=== PATIENT | male | born 1950 | race Caucasian/White ===

== ENCOUNTER 2017-04-09 20:59 | Inpatient (IN) | payer MEDICARE ==
[2017-04-09 21:01] VITALS: BP 136/83; PULSE 81; RESP 20; O2SAT 97
[2017-04-09 21:05] VITALS: O2SAT 98
--- NOTE | 2017-04-09 21:12 | PD ---
HPI Chief Complaint: ? ATIVAN OVERDOSE Time Seen by Provider: 21:04 Travel History International Travel<30 days: No Contact w/Intl Traveler<30days: No Traveled to known affect area: No History of Present Illness HPI PATIENT STATED HE TOOK SOME ATIVAN (BOTTLE IS EMPTY BUT ITS FOR 30 TABS WRITTEN 1 YEAR AGO) TO TRY AND SLEEP. FAMILY STATES THAT HE USES BIPAP AT HOME AT NIGHT TIME....[place] [facility] GUTIERREZ ACTED PATIENT APPARENTLY HE TOOK TABS WITH INTENT TO HARM HIMSELF PFSH Social History Tobacco Use: No Allergies-Medications (Allergen,Severity, Reaction): Coded Allergies: No Known Allergies (Unverified , 04/09/17) Reported Meds & Prescriptions Reported Meds & Active Scripts Active Reported Magnesium & Vitamin D (Magnesium Oxide-Cholecalciferol) 500-3,000 Mg-Unit Cap Lorazepam 1 Mg Tab 1 Mg PO HS PRN Indomethacin 50 Mg Cap 50 Mg PO TID Take with food, milk, or antacids to decrease stomach adverse effects. Rosuvastatin (Rosuvastatin Calcium) 20 Mg Tab 20 Mg PO DAILY Escitalopram (Escitalopram Oxalate) 20 Mg Tab 20 Mg PO DAILY Cheratussin AC Liq (Guaifenesin-Codeine Liq) 100-10 Mg/5 Ml Syrp 5 Ml PO Q4H PRN Do not exceed 6 doses/24 hrs. Symbicort Inh (Budesonide/Formoterol Fumarate) 160-4.5 Mcg/Act Aero 2 Puff INH Q12HR Proair Hfa 8.5 GM Inh (Albuterol Sulfate) 90 Mcg/Act Aer 1-2 Puff INH Q6H PRN 108 mcg/actuation Spiriva Handihaler (Tiotropium Inh) 18 Mcg Cap 18 Mcg INH DAILY 1 capsule = 18 mcg Review of Systems ROS Limitations: Clinical Condition Except as stated in HPI: all other systems reviewed are Neg Physical Exam Narrative GENERAL: SKIN: Warm and dry. HEAD: Atraumatic. Normocephalic. EYES: Pupils equal and round. No scleral icterus. No injection or drainage. ENT: No nasal bleeding or discharge. Mucous membranes pink and moist. NECK: Trachea midline. No JVD. CARDIOVASCULAR: Regular rate and rhythm. RESPIRATORY: NOTED TONGUE BLOCKING AIRWAY, ONCE CLEARED PATIENT HAD STRONG VENT DRIVE, PLACED NASOPHARYNGEAL AIRWAY AND WILL PLACE ON BIPAP TO ASSIST VENTILATION, Clear to auscultation. Breath sounds equal bilaterally. GASTROINTESTINAL: OBESE, Abdomen soft, non-tender, nondistended. Hepatic and splenic margins not palpable. MUSCULOSKELETAL: Extremities without clubbing, cyanosis, or edema. No obvious deformities. NEUROLOGICAL: Awake and alert. No obvious cranial nerve deficits. Motor grossly within normal limits. Five out of 5 muscle strength in the arms and legs. Normal speech. PSYCHIATRIC: Appropriate mood and affect; insight and judgment normal. Data Data Last Documented VS Vital Signs Date Time Temp Pulse Resp B/P Pulse Ox O2 Delivery O2 Flow Rate FiO2 04/09/17 22:31 97 30 04/09/17 21:09 80 20 BiPAP 04/09/17 21:05 4.00 04/09/17 21:01 136/83 Orders Electrocardiogram (04/09/17 21:04) Complete Blood Count With Diff (04/09/17 21:04) Comprehensive Metabolic Panel (04/09/17 21:04) Prothrombin Time / Inr (Pt) (04/09/17 21:04) Act Partial Throm Time (Ptt) (04/09/17 21:04) Chest, Single Ap (04/09/17 21:04) Iv Access Insert/Monitor (04/09/17 21:04) Ecg Monitoring (04/09/17 21:04) Oximetry (04/09/17 21:04) Oxygen Administration (04/09/17 21:04) Urinary Catheter Insert/Apply (04/09/17 21:04) Drug Screen, Random Urine (04/09/17 21:04) Alcohol (Ethanol) (04/09/17 21:04) Salicylates (Aspirin) (04/09/17 21:04) Tylenol (Acetaminophen) (04/09/17 21:04) Resp Bipap / Cpap Non Invas Vt (04/09/17 21:04) Arterial Blood Gas (Abg) (04/09/17 ) Ceftriaxone Inj (Rocephin Inj) (04/09/17 22:30) Azithromycin Inj (Zithromax Inj) (04/09/17 22:30) Labs Laboratory Tests Test 04/09/17 04/09/17 04/09/17 04/09/17 21:05 21:08 21:18 21:30 White Blood Count 8.9 TH/MM3 Red Blood Count 5.18 MIL/MM3 Hemoglobin 15.3 GM/DL Hematocrit 46.0 % Mean Corpuscular Volume 88.8 FL Mean Corpuscular Hemoglobin 29.4 PG Mean Corpuscular Hemoglobin 33.1 % Concent Red Cell Distribution Width 13.9 % Platelet Count 228 TH/MM3 Mean Platelet Volume 8.6 FL Neutrophils (%) (Auto) 58.6 % Lymphocytes (%) (Auto) 29.0 % Monocytes (%) (Auto) 8.9 % Eosinophils (%) (Auto) 2.8 % Basophils (%) (Auto) 0.7 % Neutrophils # (Auto) 5.2 TH/MM3 Lymphocytes # (Auto) 2.6 TH/MM3 Monocytes # (Auto) 0.8 TH/MM3 Eosinophils # (Auto) 0.2 TH/MM3 Basophils # (Auto) 0.1 TH/MM3 CBC Comment DIFF FINAL Differential Comment Sodium Level 141 MEQ/L Potassium Level 3.9 MEQ/L Chloride Level 107 MEQ/L Carbon Dioxide Level 25.9 MEQ/L Anion Gap 8 MEQ/L Blood Urea Nitrogen 11 MG/DL Creatinine 0.75 MG/DL Estimat Glomerular Filtration 105 ML/MIN Rate Random Glucose 109 MG/DL Calcium Level 9.0 MG/DL Total Bilirubin 0.7 MG/DL Aspartate Amino Transf 24 U/L (AST/SGOT) Alanine Aminotransferase 28 U/L (ALT/SGPT) Alkaline Phosphatase 59 U/L Total Protein 6.8 GM/DL Albumin 3.4 GM/DL Salicylates Level LESS THAN 1.7 MG/DL Acetaminophen Level LESS THAN 2.0 MCG/ML Ethyl Alcohol Level LESS THAN 3 MG/DL Prothrombin Time 10.9 SEC Prothromb Time International 1.0 RATIO Ratio Activated Partial 25.8 SEC Thromboplast Time Blood Gas Puncture Site RT RADIAL Blood Gas Patient Temperature 98.6 Blood Gas HCO3 26 mmol/L Blood Gas Base Excess 2.2 mmol/L Blood Gas Oxygen Saturation 96 % Arterial Blood pH 7.41 Arterial Blood Partial 43 mmHg Pressure CO2 Arterial Blood Partial 108 mmHG Pressure O2 Arterial Blood Oxygen Content 21.4 Vol % Arterial Blood 1.4 % Carboxyhemoglobin Arterial Blood Methemoglobin 0.5 % Blood Gas Hemoglobin 15.7 G/DL Oxygen Delivery Device NPPV Blood Gas Ventilator Setting IP 10/PEEP 5 Blood Gas Inspired Oxygen 30 % Urine Opiates Screen NEG Urine Barbiturates Screen NEG Urine Amphetamines Screen NEG Urine Benzodiazepines Screen NEG Urine Cocaine Screen NEG Urine Cannabinoids Screen NEG MDM Medical Decision Making Medical Screen Exam Complete: Yes Emergency Medical Condition: Yes Medical Record Reviewed: Yes Interpretation(s) AB.40/42/108 ON 30% FIO2 BIPAP EKG: NSR 82, PVC, NO STEMI PATTERN, NONSPEC STT CHANGES Differential Diagnosis NO ACUTE E/O APNEA WILL PROVIDE VENT Narrative Course PATIENT'S HAS GOOD RESP DRIVE WITH BIPAP, ABG STABLE, FOUND TO HAVE PNA, WILL GIVE IV ABX AND ADMIT FOR OBS MEDICALLY (NO NEED FOR NASOPHARYNGEAL AIRWAY AT THIS POINT) Critical Care Narrative CRITICAL CARE NOTE: With evaluation of the patient, labs, EKG, receipt of radiologic studies, administration of medications, reevaluation the patient and discussion of the patient with the admitting physicians, the total critical care time was [60] minutes. Time to perform other separately billable procedures was not included in the critical care time. Diagnosis Primary Impression: LLL PNEUMONIA Additional Impression: ATIVAN INGESTION Admitting Information Admitting Physician Requests: Observation Mg Vargas MD Apr 09, 2017 21:12
[2017-04-09 21:33] LABS: BLOOD GAS BASE EXCESS 2.2 mmol/L (-2-2); BLOOD GAS CARBOXYHEMOGLOBIN 1.4 % (0-4); BLOOD GAS HCO3 26 mmol/L (22-26); BLOOD GAS METHEMOGLOBIN 0.5 % (0-2); BLOOD GAS O2 HGB SATURATION 96 % (90-100); BLOOD GAS OXYGEN CONTENT 21.4 Vol % (12.0-20.0); BLOOD GAS PCO2 43 mmHg (38-42); BLOOD GAS PO2 108 mmHG (61-120); BLOOD GAS TOTAL HGB 15.7 G/DL (12.0-16.0); CRITICAL VALUE NO; OXYGEN DEVICE NPPV; TEMP CORR TO 98.6
[2017-04-09 21:34] LABS: DRAW SITE RT RADIAL; FIO2 30 %; NUMBER OF ARTERIAL PUNCTURES 1; STAT YES; ULNAR PULSE PRESENT; VENT SETTINGS IP 10/PEEP 5
[2017-04-09 21:58] LABS: AUTOMATED NEUTROPHIL # 5.2 TH/MM3 (1.8-7.7); BASOPHIL # 0.1 TH/MM3 (0-0.2); BASOPHIL % 0.7 % (0.0-2.0); EOSINOPHIL # 0.2 TH/MM3 (0-0.4); EOSINOPHIL % 2.8 % (0.0-4.0); HEMO FLAGS DIFF FINAL; LYMPHOCYTE # 2.6 TH/MM3 (1.0-4.8); MEAN CELL VOLUME 88.8 FL (80.0-100.0); MEAN CORPUSCULAR HEMOGLOBIN 29.4 PG (27.0-34.0); MEAN CORPUSCULAR HGB CONC 33.1 % (32.0-36.0); MONO % 8.9 % (0.0-8.0); NEUT % 58.6 % (16.0-70.0); PLATELET COUNT 228 TH/MM3 (150-450); RED BLOOD COUNT 5.18 MIL/MM3 (4.50-5.90); RED CELL DISTRIBUTION WIDTH 13.9 % (11.6-17.2); WHITE BLOOD COUNT 8.9 TH/MM3 (4.0-11.0)
[2017-04-09 22:00] VITALS: BP 132/95; PULSE 78; RESP 20; O2SAT 99
[2017-04-09 22:00] LABS: AMPHETAMINE, URINE NEG (NEG); BARBITURATES, URINE NEG (NEG); COCAINE, URINE NEG (NEG)
[2017-04-09 22:06] LABS: APTT (PATIENT) 25.8 SEC (24.3-30.1); PROTHROMBIN TIME - PATIENT 10.9 SEC (9.8-11.6)
[2017-04-09 22:11] LABS: ANION GAP 8 MEQ/L (5-15); AST (GOT) 24 U/L (15-37); BICARBONATE 25.9 MEQ/L (21.0-32.0); BLOOD UREA NITROGEN 11 MG/DL (7-18); CHLORIDE 107 MEQ/L (98-107); GLOMERULAR FILTRATION RATE 105 ML/MIN (>89); POTASSIUM 3.9 MEQ/L (3.5-5.1); SODIUM (NA) 141 MEQ/L (136-145)
[2017-04-09 22:12] LABS: ALT (GPT) 28 U/L (12-78)
--- NOTE | 2017-04-09 22:12 | RADRPT ---
EXAM DATE/TIME: 04/09/2017 21:20 [facility] COMPARISON: No previous studies available for comparison. INDICATIONS : Short of breath. MEDICAL HISTORY : None. SURGICAL HISTORY : None. ENCOUNTER: Initial ACUITY: 1 day PAIN SCORE: Non-responsive. LOCATION: Bilateral chest FINDINGS: Frontal view of the chest demonstrates partially consolidative infiltrates in the left lower lung wit hout loss of delineation left hemidiaphragm. There is fullness in the hilar regions bilaterally with out evidence of peribronchial thickening. The heart is normal size. Mild elevation of the right hem idiaphragm. CONCLUSION: Partially consolidative infiltrate left lower lobe. Bilateral hilar fullness suggests possible adeno cat. Alfred Kamara MD on April 09, 2017 at 22:08 Board Certified Radiologist. This report was verified electronically.
[2017-04-09 22:14] LABS: ALKALINE PHOSPHATASE 59 U/L (45-117); TOTAL BILIRUBIN ADULT 0.7 MG/DL (0.2-1.0)
[2017-04-09 22:17] LABS: ACETAMINOPHEN LESS THAN 2.0 MCG/ML (10.0-30.0)
[2017-04-09] MEDS ORDERED: AZITHROMYCIN INJ 500 MG in SODIUM CHLOR 0.9% 250 ML INJ 250 ML IV ONE (22:30)
[2017-04-09] MEDS ORDERED: cefTRIAXone INJ 1,000 MG in SODIUM CHLORIDE 0.9% INJ 100 ML IV ONE (22:30)
[2017-04-09 22:31] VITALS: O2SAT 97
[2017-04-09] MEDS ORDERED: ALBUAER3 INH ×2 (22:34)
[2017-04-09] MEDS ORDERED: INDO50CA PO ×2 (22:34)
[2017-04-09] MEDS ORDERED: SPIRCAP INH ×2 (22:34)
[2017-04-09] MEDS ORDERED: CHERSYP2 PO ×2 (22:34)
[2017-04-09] MEDS ORDERED: ESCI20TA PO ×2 (22:34)
[2017-04-09] MEDS ORDERED: LORA1TAB12 PO ×2 (22:34)
[2017-04-09] MEDS ORDERED: MAGNCAP2 ×2 (22:34)
[2017-04-09] MEDS ORDERED: ROSU1TAB8 PO ×2 (22:34)
[2017-04-09] MEDS ORDERED: SYMB160A INH ×2 (22:34)
[2017-04-09 23:00] VITALS: BP 162/87; PULSE 80; RESP 20; O2SAT 97
[2017-04-10] VITALS (17 sets, daily range): BP systolic 124–173; BP diastolic 58–92; PULSE 69–86; RESP 12–20; TEMP 96.3–98.8; O2SAT 91–97
[2017-04-10] MEDS ORDERED: NALOXONE HCL 0.4 MG/ML AMP IV PRN (00:15)
[2017-04-10] MEDS ORDERED: RESP: ALBUTEROL 2.5 MG/IPRATROPIUM 0.5 MG NEB (PRN) NEB (00:15)
[2017-04-10] MEDS ORDERED: SODIUM CHLORIDE 0.9% FLUSH 10 ML FLUSH IV FLUSH PRN (00:15)
--- NOTE | 2017-04-10 01:22 | HHI.HP ---
[facility] Service [facility] Primary Care Physician Ti Cabral MD Admission Diagnosis LLL PNA, SOMNOLENCE DUE TO ATIVAN INGESTION Diagnoses: Travel History International Travel<30 Days: No Contact w/Intl Traveler <30 Da: No Traveled to Known Affected Are: No History of Present Illness History from patient, ER physician communication, and review of medical records. Patient was brought in by ambulance because he was found lethargic by family members. He was under [employer] act. The [employer] act papers reviewed. Reported that patient was suspected to have Ativan ingestion. Apparently patient has a bottle of Ativan which was filled a while ago though. However patient's who was out of town was contacted who stated patient also take multiple antidepressants. At the same time In the emergency room, patient was quite lethargic and he was placed on BiPAP. At the time of my arrival, patient is lethargic but easily arousable to verbal stimuli. He denies being on BiPAP or C Pap at home. He states he does not remember what happened. He is not able to tell me whether he ingested medications intentionally or not. Does report of some nausea. States he did have a little bit of vomiting as well. Complaints of abdominal pain everywhere. Complaints of urinary burning and pain on urination. Complains of generalized pain in his legs. Traveled here from [place] about 2 days ago by plane. Denies any focal weakness. Denies any diarrhea. Denies any chest pain/palpitations/shortness of breath. Patient is unsure whether he had falls or syncope. Review of Systems Except as stated in HPI: all other systems reviewed are Neg Past Family Social History Past Medical History afib- states not on blood thinners obesity copd on home oxygen not sure of sleep apnea bph Past Surgical History appendectomy Allergies: Coded Allergies: No Known Allergies (Unverified , 04/09/17) Family History none per pt Social History used to smoke, quit now denies etoh abuse or drug abuse Physical Exam Vital Signs Vital Signs Date Time Temp Pulse Resp B/P Pulse Ox O2 Delivery O2 Flow Rate FiO2 04/10/17 00:00 98.8 81 20 143/92 97 CPAP 35 7/6/17 22:31 97 30 04/09/17 21:09 80 20 98 BiPAP 04/09/17 21:05 98 30 04/09/17 21:05 98 4.00 04/09/17 21:01 81 20 136/83 97 Physical Exam GENERAL: This is a well-nourished, well-developed patient, in no apparent distress. obese, awakens to verbal stimuli but is lethargic SKIN: No rashes, ecchymoses or lesions. Cool and dry. HEAD: Atraumatic. Normocephalic. No temporal or scalp tenderness. EYES: No scleral icterus. No injection or drainage. ENT: Nose without bleeding, purulent drainage or septal hematoma. Airway patent. NECK: Trachea midline. No JVD CARDIOVASCULAR: Regular rate and rhythm without murmurs, gallops, or rubs. RESPIRATORY: decreased air entry bilaterally, limited exam due to bipap sounds GASTROINTESTINAL: Abdomen soft, non-tender, nondistended. . No guarding. MUSCULOSKELETAL: Extremities without clubbing, cyanosis, or edema. No calf tenderness. NEUROLOGICAL: lethargic but arousable to verbal stimuli though falls right back asleep, moving all 4 limbs, normal speech Laboratory Laboratory Tests Test 04/09/17 04/09/17 04/09/17 04/09/17 21:05 21:08 21:18 21:30 White Blood Count 8.9 Red Blood Count 5.18 Hemoglobin 15.3 Hematocrit 46.0 Mean Corpuscular Volume 88.8 Mean Corpuscular Hemoglobin 29.4 Mean Corpuscular Hemoglobin 33.1 Concent Red Cell Distribution Width 13.9 Platelet Count 228 Mean Platelet Volume 8.6 Neutrophils (%) (Auto) 58.6 Lymphocytes (%) (Auto) 29.0 Monocytes (%) (Auto) 8.9 Eosinophils (%) (Auto) 2.8 Basophils (%) (Auto) 0.7 Neutrophils # (Auto) 5.2 Lymphocytes # (Auto) 2.6 Monocytes # (Auto) 0.8 Eosinophils # (Auto) 0.2 Basophils # (Auto) 0.1 CBC Comment DIFF FINAL Differential Comment Sodium Level 141 Potassium Level 3.9 Chloride Level 107 Carbon Dioxide Level 25.9 Anion Gap 8 Blood Urea Nitrogen 11 Creatinine 0.75 Estimat Glomerular Filtration 105 Rate Random Glucose 109 Calcium Level 9.0 Total Bilirubin 0.7 Aspartate Amino Transf 24 (AST/SGOT) Alanine Aminotransferase 28 (ALT/SGPT) Alkaline Phosphatase 59 Total Protein 6.8 Albumin 3.4 Salicylates Level LESS THAN 1.7 Acetaminophen Level LESS THAN 2.0 Ethyl Alcohol Level LESS THAN 3 Prothrombin Time 10.9 Prothromb Time International 1.0 Ratio Activated Partial 25.8 Thromboplast Time Blood Gas Puncture Site RT RADIAL Blood Gas Patient Temperature 98.6 Blood Gas HCO3 26 Blood Gas Base Excess 2.2 Blood Gas Oxygen Saturation 96 Arterial Blood pH 7.41 Arterial Blood Partial 43 Pressure CO2 Arterial Blood Partial 108 Pressure O2 Arterial Blood Oxygen Content 21.4 Arterial Blood 1.4 Carboxyhemoglobin Arterial Blood Methemoglobin 0.5 Blood Gas Hemoglobin 15.7 Oxygen Delivery Device NPPV Blood Gas Ventilator Setting IP 10/PEEP 5 Blood Gas Inspired Oxygen 30 Urine Opiates Screen NEG Urine Barbiturates Screen NEG Urine Amphetamines Screen NEG Urine Benzodiazepines Screen NEG Urine Cocaine Screen NEG Urine Cannabinoids Screen NEG Result Diagram: 04/09/17210404/09/172104 Imaging Last [address] 04/10/17 0000 Signed Impressions: Service Date/Time: Monday, April 10, 2017 02:53 - CONCLUSION: 1. 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 2. Otherwise, no acute intracranial process to explain current clinical symptoms. Filemon Christopher MD Chest X-Ray 04/09/172103 Signed Impressions: Service Date/Time: April 21:20 - CONCLUSION: Partially consolidative infiltrate left lower lobe. Bilateral hilar fullness suggests possible adenopathy. Alfred Kamara MD Assessment and Plan Assessment and Plan Impression: lethargylikely due to drug ingestion. His tox screen is negative including negative benzos. Likely he ingested antidepressants. [employer] act status r/o intracranial etiology CO2 retention. ABG did not reveal any significant CO2 narcosis. afib- states not on blood thinners obesity copd on home oxygen not sure of sleep apnea bph Plan: head ct eeg neurochecks no significant co2 retention ct bipap watch for co2 retention Nebs when necessary. Hold antidepressants. Hold benzos. Psychiatry consult. Sitter at the bedside. DVT prophylaxiswith Lovenox. Discussed Condition With Patient, ER physician, patient's nurse Physician Certification 2 Midnight Certification Type: Admission for Inpatient Services Order for Inpatient Services The services are ordered in accordance with Medicare regulations or non- Medicare payer requirements, as applicable. In the case of services not specified as inpatient-only, they are appropriately provided as inpatient services in accordance with the 2-midnight benchmark. Estimated LOS (days): 2 days is the estimated time the patient will need to remain in the hospital, assuming treatment plan goals are met and no additional complications. Post-Hospital Plan: Home Kayla Garrett MD Apr 10, 2017 01:22
[2017-04-10] MEDS: RESP: ALBUTEROL 2.5 MG/IPRATROPIUM 0.5 MG NEB (SCH) NEB ×4 (03:33→21:56)
--- NOTE | 2017-04-10 03:38 | RADRPT ---
EXAM DATE/TIME: 04/10/2017 02:53 [facility] COMPARISON: No previous studies available for comparison. INDICATIONS : Altered mental status. RADIATION DOSE: 69.15 CTDIvol (mGy) MEDICAL HISTORY : Non-responsive. SURGICAL HISTORY : Non-responsive. ENCOUNTER: Initial ACUITY: 1 day PAIN SCALE: Non-responsive LOCATION: cranial TECHNIQUE: Multiple contiguous axial images were obtained of the head. Using automated exposure control and adj ustment of the mA and/or kV according to patient size, radiation dose was kept as low as reasonably a chievable to obtain optimal diagnostic quality images. DICOM format image data is available electro nically for review and comparison. FINDINGS: CEREBRUM: The ventricles are normal for age. No evidence of midline shift, mass lesion, hemorrhage or acute in farction. 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 No extra-axial fluid collections are seen. POSTERIOR FOSSA: The cerebellum and brainstem are intact. The 4th ventricle is midline. The cerebellopontine angle i s unremarkable. EXTRACRANIAL: The visualized portion of the orbits is intact. SKULL: The calvaria is intact. No evidence of skull fracture. CONCLUSION: 1. 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 2. Otherwise, no acute intracranial process to explain current clinical symptoms. Filemon Christopher MD on April 10, 2017 at 3:34 Board Certified Radiologist. This report was verified electronically.
[2017-04-10] MEDS: BUDESONIDE-FORMOTEROL 160/4.5 MCG INHALER INH SCH ×2 (09:00→20:48)
[2017-04-10] MEDS: TIOTROPIUM BROMIDE 18 MCG INH INH SCH (09:00)
[2017-04-10] MEDS: LEVOFLOXACIN 750 MG PREMIX INJ 150 ML IV SCH (09:24)
[2017-04-10] MEDS: ATORVASTATIN 40 MG TAB PO SCH (09:24)
[2017-04-10] MEDS: ENOXAPARIN SODIUM 40 MG/0.4 ML SYRINGE SQ SCH (09:25)
[2017-04-10] MEDS: SODIUM CHLORIDE 0.9% FLUSH 10 ML FLUSH IV FLUSH SCH ×2 (09:26→21:00)
--- NOTE | 2017-04-10 10:10 | PD.PSY.CON ---
Provisional Diagnosis Admission Date Apr 09, 2017 at 23:32 [place]. Major depression, severe, without psychotic features. History of Present Illness Service Psychiatry Consult Requested By [facility] Primary Care Physician Ti Cabral MD HPI This is a 67-year-old male who apparently overdosed on approximately 31 mg tablets of Ativan. The patient is currently in respiratory insufficiency and is receiving oxygen by mask. He is lethargic and short of breath, thereby making him a inadequate historian. He does admit to symptoms of depression and that this was a suicide attempt. He also states "I have a lot on my mind". He is willing and wanting to be admitted to the inpatient psychiatry unit. He is obese with a history of COPD and possible apnea. Apparently his was out of town when this happened. The Ativan he took was approximately one year old. He denies any use of alcohol or illicit drugs. He does report anxiety, depressed mood, suicidality, diminished energy, diminished self-esteem. And feelings of hopelessness. His symptoms of depression have been going on for months. Review of Systems ROS Limitations: Poor Historian Past Family Social History Coded Allergies: No Known Allergies (Unverified , 04/09/17) Reported Medications Magnesium Oxide-Cholecalciferol (Magnesium & Vitamin D)500-3,000 Mg-Unit Cap 04/09/17 Lorazepam 1 Mg Tab1 Mg PO HS PRN (ANXIETY AND/OR INSOMNIA) Ref 0 04/09/17 Indomethacin 50 Mg Cap50 Mg PO TID Ref 0 Take with food, milk, or antacids to decrease stomach adverse effects. 04/09/17 Rosuvastatin 20 Mg Tab20 Mg PO DAILY #30 TAB Ref 0 04/09/17 Escitalopram 20 Mg Tab20 Mg PO DAILY #30 TAB Ref 0 04/09/17 Guaifenesin-Codeine Liq (Cheratussin AC Liq)100-10 Mg/5 Ml Syrp5 Ml PO Q4H PRN ( COUGH AND COLD SYMPTOMS) Ref 0 Do not exceed 6 doses/24 hrs. 04/09/17 Budesonide-Formoterol Inh (Symbicort Inh)160-4.5 Mcg/Act Aero2 Puff INH Q12HR # 1 INHALER Ref 0 04/09/17 Albuterol 8.5 GM Inh (Proair Hfa 8.5 GM Inh)90 Mcg/Act Aer1-2 Puff INH Q6H PRN ( SHORTNESS OF BREATH) #1 INHALER Ref 0 108 mcg/actuation 04/09/17 Tiotropium Inh (Spiriva Handihaler)18 Mcg Cap18 Mcg INH DAILY #30 CAP Ref 0 1 capsule = 18 mcg 04/09/17 Current Medications Medications (Trade) Dose Ordered Sig/[place] Route Start Time Stop Time Status Last Admin (NS Flush) 2 ml UNSCH PRN IV FLUSH 04/10/17 00:15 (NS Flush) 2 ml BID IV FLUSH 04/10/17 09:00 04/10/17 09:26 Naloxone HCl 0.4 mg 0.4 mg UNSCH PRN IV 04/10/17 00:15 (Levaquin 750 Mg Premix Inj) 150 ml @ 100 mls/hr Q24H IV 04/10/17 08:00 04/10/17 09:24 (Symbicort 160-4.5 Inh) 2 puff Q12HR INH 04/10/17 09:00 (Spiriva Inh) 18 mcg DAILY INH 04/10/17 09:00 (Lipitor) 40 mg DAILY PO 04/10/17 09:00 04/10/17 09:24 (Lovenox Inj) 40 mg Q24H SQ 04/10/17 09:00 04/10/17 09:25 Family History Denied Social History Patient gave a smoking years ago. He does not drink alcohol or use illicit drugs. He does have financial stressors and family stressors. Patient's Strengths (min. 2) Resilient and has access to healthcare. Physical Exam Vital Signs Vital Signs Date Time Temp Pulse Resp B/P Pulse Ox O2 Delivery O2 Flow Rate FiO2 04/10/17 09:42 94 Nasal Cannula 2.00 04/10/17 07:00 97.9 71 17 173/77 04/10/17 01:30 30 Mental Status Examination Speech: Unremarkable, Other Orientation: x3 Memory: Unremarkable Thought Process: Organized, Goal Directed Thought Content: Unremarkable Hallucination Type: None Attention and Concentration: Good Suicidal Ideation: Yes Previous Suicide Attempts: Yes Homicidal Ideation: No Previous Homicide Attempts: No Insight: Fair Judgment: Impulsive Affect: Anxious, Sad Mood: Sad, Anxious Motor Activity: Normal gait Assessment & Plan Problem List: (1) Severe major depression, single episode, without psychotic features ICD Code: F32.2 Assessment & Plan Estimated LOS: days due to patient's current state of depression and anxiety, coupled with his recent overdose and continued suicidality, he is at high risk for self-harm. This physician is recommending the patient be transferred to psychiatry when he is medically stable. As of this physician is leaving [facility] for several weeks, it is recommended the psychiatrist on-call be contacted when patient is medically stable for discharge. Art Colbert MD Apr 10, 2017 10:10
--- NOTE | 2017-04-10 12:34 | HHI.PR ---
Subjective Remarks Follow-up toxic encephalopathy 04/10/17-patient seen and examined; although [place] lethargic however patient is arousable and answers some questions. Seems to be oriented to place ,person. Objective Vitals Vital Signs Date Time Temp Pulse Resp B/P Pulse Ox O2 Delivery O2 Flow Rate FiO2 04/10/17 12:00 78 04/10/17 11:00 98.6 83 12 138/84 95 04/10/17 11:00 80 04/10/17 10:00 75 04/10/17 09:42 94 Nasal Cannula 2.00 04/10/17 09:00 86 04/10/17 07:00 97.9 71 17 173/77 91 04/10/17 04:00 85 04/10/17 03:26 97.4 79 133/84 95 04/10/17 03:00 74 04/10/17 01:58 94 Nasal Cannula 2.00 04/10/17 01:50 95 Nasal Cannula 04/10/17 01:30 82 16 124/71 97 BiPAP 30 04/10/17 00:00 98.8 81 20 143/92 97 BiPAP 35 04/09/17 23:00 80 20 162/87 97 BiPAP 35 04/09/17 22:31 97 30 04/09/17 22:00 78 20 132/95 99 BiPAP 35 04/09/17 21:09 80 20 98 BiPAP 04/09/17 21:05 98 30 04/09/17 21:05 98 4.00 04/09/17 21:01 81 20 136/83 97 I/O 04/09/17 04/09/17 04/09/17 04/10/17 04/10/17 04/10/17 07:00 15:00 23:00 07:00 15:00 23:00 Output Total 75 ml Balance -75 ml Output Urine Total 75 ml Result Diagram: 04/09/17210404/09/172104 Imaging Last Impressions Head CT 04/10/17 0000 Signed Impressions: Service Date/Time: Monday, April 10, 2017 02:53 - CONCLUSION: 1. 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 2. Otherwise, no acute intracranial process to explain current clinical symptoms. Filemon Christopher MD Chest X-Ray 04/09/172103 Signed Impressions: Service Date/Time: April 21:20 - CONCLUSION: Partially consolidative infiltrate left lower lobe. Bilateral hilar fullness suggests possible adenopathy. Alfred Kamara MD Objective Remarks GENERAL: Lethargic, otherwise not in acute distress SKIN: Warm and dry. HEAD: Normocephalic. EYES: No scleral icterus. No injection or drainage. NECK: Supple, trachea midline. No JVD or lymphadenopathy. CARDIOVASCULAR: Regular rate and rhythm without murmurs, gallops, or rubs. RESPIRATORY: Breath sounds equal bilaterally. No accessory muscle use. GASTROINTESTINAL: Abdomen soft, non-tender, nondistended. MUSCULOSKELETAL: No cyanosis, or edema. BACK: Nontender without obvious deformity. No CVA tenderness. A/P Problem List: (1) Toxic encephalopathy ICD Code: G92 Status: Acute Assessment and Plan 67-year-old man with Toxic encephalopathy Likely due to drug ingestion. His tox screen is negative including negative benzos. Resolving Acute mood disorder Appreciate input from psychiatry Continue with [employer] act and Sitter by the bedside CO2 narcosis CO2 retention. BiPAP when necessary Community-acquired bacterial pneumonia Continue with IV Levaquin Other chronic medical conditions Continue outpatient medications DVT prophylaxis Bilateral SCDs Rohan Contreras MD Apr 10, 2017 12:34 Plan: head ct eeg neurochecks no significant co2 retention ct bipap watch for co2 retention Nebs when necessary. Hold antidepressants. Hold benzos. Psychiatry consult. Sitter at the bedside. Rohan Contreras MD Apr 10, 2017 12:34
--- NOTE | 2017-04-10 13:29 | EKG ---
Date Performed: 04/09/2017 Time Performed: 21:05:56 PTAGE: 67 years EKG: Sinus rhythm WITH FREQUENT SUPRAVENTRICULAR PREMATURE COMPLEXES ABNORMAL RHYTHM ECG NO PREVIOUS TRACING DOCTOR: Gui Carrizales Interpretating Date/Time 04/10/2017 13:23:40
--- NOTE | 2017-04-10 15:29 | MG ---
cc: [facility] No: [id number] Date: 04/10/17 Age: 67 Sex: M Race: DATE OF [address] Garrett ROOM [id number] With photic stimulation, has a nasal cannula. Awake, drowsy study. CT showed possible old lacune in the right internal capsule. A 67-year-old patient male, found lethargic, Grubbs Acted. MEDICATIONS 1. Rocephin. 2. Azithormycin. 3. Albuterol. DESCRIPTION OF RECORD The patient has an 8 Hz alpha wave, 20 microvolts. Fairly symmetrical background. EKG looks sinus initially and then there is some sinus arrhythmia, possible a-fib. This is ___ by the one lead but overall a symmetrical background. Some muscle artifact documented and observed. Eye movement. Photic stimulation does elicit a posterior driving response. IMPRESSION Overall normal-appearing EEG. No appreciable evidence of any epileptiform features in this one recording. Clinical correlation. Raiza Stewart MD DF/EO /3:08 PM /3:28 PM
[2017-04-10 16:43] LABS: BACTERIA, URINE OCC /hpf; BLOOD, URINE LARGE (NEG); GLUCOSE,URINE NEG (NEG); KETONE, URINE NEG (NEG); MUCUS URINE MANY /lpf (OCC); NITRITE,URINE NEG (NEG); PH, URINE 5.5 (5.0-8.5); SQUAMOUS EPITHELIAL CELL URINE 1 /hpf (0-5); URINE COLOR YELLOW (YELLW/STRAW)
[2017-04-10 16:44] LABS: COMMENT (UR) CATH-CULTURE IND; CULTURE IF INDICATED CATH CULTURE IND
[2017-04-11] VITALS (9 sets, daily range): BP systolic 122–146; BP diastolic 61–81; PULSE 72–91; RESP 18–20; TEMP 95.7–98; O2SAT 92–98
[2017-04-11] MEDS: RESP: ALBUTEROL 2.5 MG/IPRATROPIUM 0.5 MG NEB (SCH) NEB ×4 (04:23→21:37)
[2017-04-11 08:37] LABS: AUTOMATED NEUTROPHIL # 5.5 TH/MM3 (1.8-7.7); BASOPHIL % 0.5 % (0.0-2.0); EOSINOPHIL # 0.2 TH/MM3 (0-0.4); HEMATOCRIT 44.7 % (39.0-51.0); HEMO FLAGS DIFF FINAL; LYMPH % 21.6 % (9.0-44.0); LYMPHOCYTE # 1.8 TH/MM3 (1.0-4.8); MEAN CELL VOLUME 88.4 FL (80.0-100.0); MEAN CORPUSCULAR HEMOGLOBIN 29.4 PG (27.0-34.0); MEAN CORPUSCULAR HGB CONC 33.3 % (32.0-36.0); MONO % 9.2 % (0.0-8.0); NEUT % 66.7 % (16.0-70.0); PLATELET COUNT 219 TH/MM3 (150-450); RED BLOOD COUNT 5.05 MIL/MM3 (4.50-5.90); RED CELL DISTRIBUTION WIDTH 13.9 % (11.6-17.2); WHITE BLOOD COUNT 8.2 TH/MM3 (4.0-11.0)
[2017-04-11] MEDS: LEVOFLOXACIN 750 MG PREMIX INJ 150 ML IV SCH (08:40)
[2017-04-11] MEDS: TIOTROPIUM BROMIDE 18 MCG INH INH SCH (08:41)
[2017-04-11] MEDS: BUDESONIDE-FORMOTEROL 160/4.5 MCG INHALER INH SCH ×2 (08:41→20:02)
[2017-04-11] MEDS: ATORVASTATIN 40 MG TAB PO SCH (08:42)
[2017-04-11] MEDS: SODIUM CHLORIDE 0.9% FLUSH 10 ML FLUSH IV FLUSH SCH ×2 (08:42→20:15)
[2017-04-11] MEDS: ENOXAPARIN SODIUM 40 MG/0.4 ML SYRINGE SQ SCH (08:42)
[2017-04-11 09:21] LABS: BICARBONATE 27.7 MEQ/L (21.0-32.0); POTASSIUM 3.6 MEQ/L (3.5-5.1)
--- NOTE | 2017-04-11 10:50 | HHI.PR ---
Subjective Remarks Follow-up toxic encephalopathy/community acquired pneumonia and now UTI 04/10/17-patient seen and examined; although Soma lethargic however patient is arousable and answers some questions. Seems to be oriented to place ,person. 04/11/17-patient seen and examined; alert and oriented 3, patient states he has no recollection of what happened; patient denies any suicidal ideation or attempt Objective Vitals Vital Signs Date Time Temp Pulse Resp B/P Pulse Ox O2 Delivery O2 Flow Rate FiO2 04/11/17 08:16 92 Nasal Cannula 2.00 04/11/17 08:02 95.8 79 20 122/68 98 04/11/17 04:00 95.7 73 18 132/61 94 04/11/17 00:00 98.0 82 20 146/74 96 04/10/17 21:57 93 Nasal Cannula 2.00 04/10/17 20:00 97.0 85 20 158/78 92 04/10/17 16:27 95 Nasal Cannula 2.00 04/10/17 16:00 97.7 80 20 139/78 94 04/10/17 13:29 96.3 71 18 157/58 04/10/17 12:00 78 04/10/17 11:00 98.6 83 12 138/84 95 04/10/17 11:00 80 I/O 04/10/17 04/10/17 04/10/17 04/11/17 04/11/17 04/11/17 07:00 15:00 23:00 07:00 15:00 23:00 Intake Total 240 ml Output Total 75 ml 350 ml 350 ml Balance -75 ml -350 ml -110 ml Intake Oral 240 ml Output Urine Total 75 ml 350 ml 350 ml # Voids 4 Result Diagram: 04/11/17 0745 04/11/17 0714 Imaging Last Impressions Head CT 04/10/17 0000 Signed Impressions: Service Date/Time: Monday, April 10, 2017 02:53 - CONCLUSION: 1. 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 2. Otherwise, no acute intracranial process to explain current clinical symptoms. Filemon Christopher MD Chest X-Ray 04/09/172103 Signed Impressions: Service Date/Time: April 21:20 - CONCLUSION: Partially consolidative infiltrate left lower lobe. Bilateral hilar fullness suggests possible adenopathy. Alfred Kamara MD Objective Remarks GENERAL: NAD SKIN: Warm and dry. HEAD: Normocephalic. EYES: No scleral icterus. No injection or drainage. NECK: Supple, trachea midline. No JVD or lymphadenopathy. CARDIOVASCULAR: Regular rate and rhythm without murmurs, gallops, or rubs. RESPIRATORY: Breath sounds equal bilaterally. No accessory muscle use. GASTROINTESTINAL: Abdomen soft, non-tender, nondistended. MUSCULOSKELETAL: No cyanosis, or edema. BACK: Nontender without obvious deformity. No CVA tenderness. A/P Problem List: (1) Toxic encephalopathy ICD Code: G92 Status: Resolved (2) Community acquired bacterial pneumonia ICD Code: J15.9 Status: Acute (3) UTI (urinary tract infection) ICD Code: N39.0 Status: Acute Assessment and Plan 67-year-old man with Toxic encephalopathy-Resolved Likely due to drug ingestion. His tox screen is negative including negative benzos. Acute mood disorder Appreciate input from psychiatry Continue with Grubbs act and Sitter by the bedside CO2 narcosis CO2 retention-Resolved BiPAP when necessary Community-acquired bacterial pneumonia Continue with IV Levaquin Urinary tract infection Currently on IV Levaquin pending urine culture Other chronic medical conditions Continue outpatient medications DVT prophylaxis Bilateral SCDs Rohan Contreras MD Apr 11, 2017 10:50
[2017-04-12 00:47] VITALS: BP 113/55; PULSE 71; RESP 17; TEMP 97.6; O2SAT 97
[2017-04-12] MEDS: RESP: ALBUTEROL 2.5 MG/IPRATROPIUM 0.5 MG NEB (SCH) NEB ×2 (03:00→10:02)
[2017-04-12 04:37] VITALS: BP 135/64; PULSE 82; RESP 17; TEMP 98.2; O2SAT 95
[2017-04-12] MEDS: LEVOFLOXACIN 750 MG PREMIX INJ 150 ML IV SCH (07:42)
[2017-04-12 08:00] VITALS: BP 120/65; PULSE 79; RESP 20; O2SAT 92
[2017-04-12] MEDS: ENOXAPARIN SODIUM 40 MG/0.4 ML SYRINGE SQ SCH (09:00)
[2017-04-12] MEDS: TIOTROPIUM BROMIDE 18 MCG INH INH SCH (09:32)
[2017-04-12] MEDS: BUDESONIDE-FORMOTEROL 160/4.5 MCG INHALER INH SCH (09:33)
[2017-04-12] MEDS: ATORVASTATIN 40 MG TAB PO SCH (09:34)
[2017-04-12] MEDS: SODIUM CHLORIDE 0.9% FLUSH 10 ML FLUSH IV FLUSH SCH (09:34)
[2017-04-12 10:02] VITALS: O2SAT 95
--- NOTE | 2017-04-12 11:04 | HHI.PR ---
Subjective Remarks Follow-up toxic encephalopathy/community acquired pneumonia and UTI 04/10/17-patient seen and examined; although Soma lethargic however patient is arousable and answers some questions. Seems to be oriented to place ,person. 04/11/17-patient seen and examined; alert and oriented 3, patient states he has no recollection of what happened; patient denies any suicidal ideation or attempt 04/12/17-patient seen and examined;, stable, afebrile, no acute event overnight. Objective Vitals Vital Signs Date Time Temp Pulse Resp B/P Pulse Ox O2 Delivery O2 Flow Rate FiO2 04/12/17 10:02 95 21 04/12/17 08:00 79 20 120/65 92 04/12/17 04:37 98.2 82 17 135/64 95 04/12/17 00:47 97.6 71 17 113/55 97 04/11/17 21:27 88 04/11/17 20:00 95.7 81 20 144/73 92 04/11/17 16:34 96.0 72 20 128/81 92 04/11/17 12:38 96.1 91 20 124/68 I/O 04/11/17 04/11/17 04/11/17 04/12/17 04/12/17 04/12/17 07:00 15:00 23:00 07:00 15:00 23:00 Intake Total 240 ml 1060 ml 120 ml Output Total 350 ml Balance -110 ml 1060 ml 120 ml Intake Oral 240 ml 960 ml 120 ml IV Total 100 ml Output Urine Total 350 ml # Voids 4 4 1 Result Diagram: 04/11/17 0745 04/11/17 0714 Imaging Last Impressions Head CT 04/10/17 0000 Signed Impressions: Service Date/Time: Monday, April 10, 2017 02:53 - CONCLUSION: 1. 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 2. Otherwise, no acute intracranial process to explain current clinical symptoms. Filemon Christopher MD Chest X-Ray 04/09/172103 Signed Impressions: Service Date/Time: April 21:20 - CONCLUSION: Partially consolidative infiltrate left lower lobe. Bilateral hilar fullness suggests possible adenopathy. Alfred Kamara MD Objective Remarks GENERAL: NAD SKIN: Warm and dry. HEAD: Normocephalic. EYES: No scleral icterus. No injection or drainage. NECK: Supple, trachea midline. No JVD or lymphadenopathy. CARDIOVASCULAR: Regular rate and rhythm without murmurs, gallops, or rubs. RESPIRATORY: Breath sounds equal bilaterally. No accessory muscle use. GASTROINTESTINAL: Abdomen soft, non-tender, nondistended. MUSCULOSKELETAL: No cyanosis, or edema. BACK: Nontender without obvious deformity. No CVA tenderness. Procedures None A/P Problem List: (1) Toxic encephalopathy ICD Code: G92 Status: Resolved (2) Community acquired bacterial pneumonia ICD Code: J15.9 Status: Acute (3) UTI (urinary tract infection) ICD Code: N39.0 Status: Acute (4) Acute adjustment disorder with depressed mood ICD Code: F43.21 Status: Acute Assessment and Plan 67-year-old man with Toxic encephalopathy-resolved Likely due to drug ingestion. His tox screen is negative including negative benzos. Resolved Acute mood disorder Appreciate input from psychiatry Continue with Grubbs act and Sitter by the bedside Patient is now medically clear for discharge to inpatient psychiatry CO2 narcosis CO2 retention-resolved BiPAP when necessary Community-acquired bacterial pneumonia Continue with IV Levaquin however was switched to by mouth Levaquin (end date 04/16/17) Urinary tract infections Continue with Levaquin pending urine culture Other chronic medical conditions Continue outpatient medications DVT prophylaxis Bilateral SCDs Discharge Planning Patient is medically clear for discharge to inpatient psychiatry Rohan Contreras MD Apr 12, 2017 11:04
[2017-04-12] MEDS ORDERED: LEVA750T9 PO (11:07)
--- NOTE | 2017-04-12 11:10 | HHI.DS ---
Discharge Summary Admission Date Apr 09, 2017 at 23:32 Discharge Date: Apr 12, 2017 Admitting Diagnosis LLL PNA, SOMNOLENCE DUE TO ATIVAN INGESTION (1) Toxic encephalopathy ICD Code: G92 (2) Community acquired bacterial pneumonia ICD Code: J15.9 (3) UTI (urinary tract infection) ICD Code: N39.0 (4) Acute adjustment disorder with depressed mood ICD Code: F43.21 Procedures None Brief History - From Admission History from patient, ER physician communication, and review of medical records. Patient was brought in by ambulance because he was found lethargic by family members. He was under Grubbs act. The Grubbs act papers reviewed. Reported that patient was suspected to have Ativan ingestion. Apparently patient has a bottle of Ativan which was filled a while ago though. However patient's who was out of town was contacted who stated patient also take multiple antidepressants. At the same time In the emergency room, patient was quite lethargic and he was placed on BiPAP. At the time of my arrival, patient is lethargic but easily arousable to verbal stimuli. He denies being on BiPAP or C Pap at home. He states he does not remember what happened. He is not able to tell me whether he ingested medications intentionally or not. Does report of some nausea. States he did have a little bit of vomiting as well. Complaints of abdominal pain everywhere. Complaints of urinary burning and pain on urination. Complains of generalized pain in his legs. Traveled here from [place] about 2 days ago by plane. Denies any focal weakness. Denies any diarrhea. Denies any chest pain/palpitations/shortness of breath. Patient is unsure whether he had falls or syncope. CBC/BMP: 04/11/17 0745 04/11/17 0714 Significant Findings Laboratory Tests Test 04/09/17 04/09/17 04/10/17 04/11/17 21:05 21:18 15:30 07:14 Monocytes (%) (Auto) 8.9 % (0.0-8.0) Random Glucose 109 MG/DL 117 MG/DL (74-106) (74-106) Salicylates Level LESS THAN 1.7 MG/DL (2.8-20.0) Acetaminophen Level LESS THAN 2.0 MCG/ML (10.0-30.0) Blood Gas Base Excess 2.2 mmol/L (-2-2) Arterial Blood Partial 43 mmHg (38-42) Pressure CO2 Arterial Blood Oxygen Content 21.4 Vol % (12.0-20.0) Urine Turbidity HAZY (CLEAR) Urine Protein 30 mg/dL (NEG-TRACE) Urine Occult Blood LARGE (NEG) Urine Leukocyte Esterase LARGE (NEG) Urine WBC 27 /hpf (0-5) Urine Bacteria OCC /hpf (NONE) Urine Mucus MANY /lpf (OCC) Test 04/11/17 07:45 Monocytes (%) (Auto) 9.2 % (0.0-8.0) Imaging Last Impressions Head CT 04/10/17 0000 Signed Impressions: Service Date/Time: Monday, April 10, 2017 02:53 - CONCLUSION: 1. 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 2. Otherwise, no acute intracranial process to explain current clinical symptoms. Filemon Christopher MD Chest X-Ray 04/09/172103 Signed Impressions: Service Date/Time: April 21:20 - CONCLUSION: Partially consolidative infiltrate left lower lobe. Bilateral hilar fullness suggests possible adenopathy. Alfred Kamara MD PE at Discharge GENERAL: NAD SKIN: Warm and dry. HEAD: Normocephalic. EYES: No scleral icterus. No injection or drainage. NECK: Supple, trachea midline. No JVD or lymphadenopathy. CARDIOVASCULAR: Regular rate and rhythm without murmurs, gallops, or rubs. RESPIRATORY: Breath sounds equal bilaterally. No accessory muscle use. GASTROINTESTINAL: Abdomen soft, non-tender, nondistended. MUSCULOSKELETAL: No cyanosis, or edema. BACK: Nontender without obvious deformity. No CVA tenderness. Hospital Course Patient admitted secondary to toxic encephalopathy as well as CO2 narcosis which improved with BiPAP when necessary. Secondary to acute mood disorder and suicidal ideations psychiatry was consulted. He was also treated for community acquired bacterial pneumonia as well as UTI with IV Levaquin, which was treated to by mouth. Patient's condition improved and vitals remained stable prior to discharge. He will complete a total 7 day course of antibiotic. Pt Condition on Discharge: Stable Discharge Disposition: Disc to Psych Care Fac Discharge Time: > 30 minutes Discharge Instructions DIET: Follow Instructions for: Heart Healthy Diet Activities you can perform: Regular-No Restrictions Follow up Referrals: PCP Follow-up - 2-3 Days Psychiatry Adult New Medications: Levofloxacin (Levaquin) 750 Mg Tablet 750 MG PO DAILY Infection #4 MG Continued Medications: Albuterol 8.5 GM Inh (Proair Hfa 8.5 GM Inh) 90 Mcg/Act Aer 1-2 PUFF INH Q6H 108 mcg/actuation PRN SHORTNESS OF BREATH #1 Ref 0 INHALER Budesonide-Formoterol Inh (Symbicort Inh) 160-4.5 Mcg/Act Aero 2 PUFF INH Q12HR #1 Ref 0 INHALER Escitalopram (Escitalopram) 20 Mg Tab 20 MG PO DAILY #30 Ref 0 TAB Guaifenesin-Codeine Liq (Cheratussin AC Liq) 100-10 Mg/5 Ml Syrp 5 ML PO Q4H Do not exceed 6 doses/24 hrs. PRN COUGH AND COLD SYMPTOMS Ref 0 ML Indomethacin (Indomethacin) 50 Mg Cap 50 MG PO TID Take with food, milk, or antacids to decrease stomach adverse effects. Ref 0 CAP Lorazepam (Lorazepam) 1 Mg Tab 1 MG PO HS PRN ANXIETY AND/OR INSOMNIA Ref 0 TAB Magnesium Oxide-Cholecalciferol (Magnesium & Vitamin D) 500-3,000 Mg-Unit Cap Rosuvastatin (Rosuvastatin) 20 Mg Tab 20 MG PO DAILY Cholesterol Management #30 Ref 0 TAB Tiotropium Inh (Spiriva Handihaler) 18 Mcg Cap 18 MCG INH DAILY 1 capsule = 18 mcg COPD #30 Ref 0 CAP Rohan Contreras MD Apr 12, 2017 11:10
[2017-04-12 12:00] VITALS: BP 124/62; PULSE 84; RESP 20; TEMP 96.6; O2SAT 93
[2017-04-12 13:52] VITALS: PULSE 68
[2017-04-13] MEDS ORDERED: LEVOFLOXACIN 750 MG TAB PO SCH (09:00)
[2017-04-13] MEDS ORDERED: ESCI20TA PO (12:08)
[2017-04-13] MEDS ORDERED: LEVA750T9 PO (12:08)
[2017-04-13] MEDS ORDERED: SPIRCAP INH (12:08)
[2017-04-13] MEDS ORDERED: Rosuvastatin PO (12:08)
[2017-04-13] MEDS ORDERED: ATOR40TA16 PO (12:08)
[2017-04-13] MEDS ORDERED: SYMB160A INH ×2 (12:08)
[2017-04-13] MEDS ORDERED: INDO50CA PO (12:08)
== END 2017-04-12 14:41 | DRG 91 ==
LOC: NEPC 20:59 → NEDA 23:32 → OBSVTOIN 23:32 → HCIS 04-10 03:04 → N05B 04-10 13:13
PROVIDERS: ADMIT Hospitalist; ATTEND Hospitalist
PROC: 5A09357 Assistance with Respiratory Ventilation, Less than 24 Consecutive Hours, Continuous Positive Airway Pressure (ICD-10-PCS; principal; 2017-04-09)
DX: G92 Toxic encephalopathy (principal); J44.0 Chronic obstructive pulmonary disease with (acute) lower respiratory infection; J15.9 Unspecified bacterial pneumonia; E87.2 Acidosis; R45.851 Suicidal ideations; I48.91 Unspecified atrial fibrillation; Z99.81 Dependence on supplemental oxygen; N39.0 Urinary tract infection, site not specified; R53.83 Other fatigue; T42.4X5A Adverse effect of benzodiazepines, initial encounter; F39 Unspecified mood [affective] disorder; M79.605 Pain in left leg; M79.604 Pain in right leg; E66.9 Obesity, unspecified; N40.0 Benign prostatic hyperplasia without lower urinary tract symptoms; Z87.891 Personal history of nicotine dependence
CPT/HCPCS: 36600; 51702; 70450; 71010; 80048; 80053; 80307; 81001; 82805; 85025; 85610; 85730; 87086; 93005; 94002; 94640; 94664; 95819; 96374; J0456; J0696; J1650; J1956; J7050

== ENCOUNTER 2017-04-12 15:14 | Inpatient (IN) | payer MEDICARE ==
[~2017-04-12] VITALS: Ht 180.3 cm; Wt 146.2 kg
[~2017-04-12 15:14] MED LIST: ALBUAER3 INH; CHERSYP2 PO; ESCI20TA PO; INDO50CA PO; LEVA750T9 PO; LORA1TAB12 PO; MAGNCAP2; ROSU1TAB8 PO; SPIRCAP INH; SYMB160A INH
[2017-04-12 15:36] VITALS: BP 158/74; PULSE 87; RESP 18; TEMP 97.6; O2SAT 94
[2017-04-12] MEDS ORDERED: ACETAMINOPHEN 325 MG TAB PO PRN (15:45)
[2017-04-12] MEDS ORDERED: ALUMINUM/MAGNESIUM/SIMETH 30 ML CUP PO PRN (15:45)
[2017-04-12] MEDS ORDERED: diphenhydrAMINE HCL 50 MG CAP - HS PRN PO (15:45)
[2017-04-12] MEDS ORDERED: diphenhydrAMINE HCL 50 MG/ML VIAL - HS PRN IM (15:45)
[2017-04-12] MEDS ORDERED: hydrOXYzine HCL 50 MG TAB PO PRN (15:45)
[2017-04-12] MEDS ORDERED: MAGNESIUM HYDROXIDE SUSP 30 ML CUP PO PRN (15:45)
[2017-04-12] MEDS ORDERED: ALBUTEROL SULFATE 90 MCG/ACT HFA 18 GM INHALER INH PRN (19:30)
[2017-04-12] MEDS ORDERED: LORazepam 1 MG TAB PO PRN (19:30)
[2017-04-12] MEDS: INDOMETHACIN 50 MG CAP PO SCH (20:00)
[2017-04-12 20:34] VITALS: O2SAT 94
[2017-04-12] MEDS: BUDESONIDE-FORMOTEROL 160/4.5 MCG INHALER INH SCH (21:00)
[2017-04-13 05:33] VITALS: BP 140/65; PULSE 71; RESP 19; TEMP 97.4; O2SAT 93
[2017-04-13] MEDS: BUDESONIDE-FORMOTEROL 160/4.5 MCG INHALER INH SCH (09:00)
[2017-04-13] MEDS ORDERED: TIOTROPIUM BROMIDE 18 MCG INH INH SCH (09:00)
[2017-04-13] MEDS ORDERED: ESCITALOPRAM OXALATE 20 MG TAB PO SCH (09:00)
[2017-04-13] MEDS ORDERED: ATORVASTATIN 40 MG TAB PO SCH (09:00)
[2017-04-13] MEDS ORDERED: LEVOFLOXACIN 750 MG TAB PO SCH (09:00)
[2017-04-13] MEDS: INDOMETHACIN 50 MG CAP PO SCH (09:19)
[2017-04-13 09:52] VITALS: O2SAT 94
[2017-04-13] MEDS ORDERED: guaiFENesin/CODEINE SYRUP 200 MG/20 MG/10 ML CUP PO PRN (11:45)
[2017-04-13] MEDS ORDERED: ACETAMINOPHEN 325 MG TAB PO PRN (11:45)
--- NOTE | 2017-04-13 11:57 | HHI.HP ---
Provisional Diagnosis Admission Date Apr 12, 2017 at 15:14 [place]. Adjustment disorder with depressed mood f 3.21, pneumonia, UTI Certification of Person's Competence To Provide Express and Informed Consent I have personally examined Preston Schwarz , a person being served at [facility] on, Apr 13, 2017 11:46. Express and informed consent means consent voluntarily given in writing, by a competent person, after sufficient explanation and disclosure of the subject matter involved to enable the person to make a knowing and willful decision without any element of force, fraud, deceit, duress, or other form of constraint or coercion. This person is 18 years of age or older, is not now known to be incompetent to consent to treatment with a guardian advocate, and does not have a health care surrogate or proxy currently making medical treatment decisions. I have found this person to be one of the following: []xx Competent to provide express and informed consent, as defined above, for voluntary admission to this facility and is competent to provide express and informed consent for treatment. He/she has the consistent capacity to make well reasoned, willful, and knowing decisions concerning his or her medical or mental health treatment. The person fully and consistently understands the purpose of the admission for examination/placement and is fully capable of personally exercising all rights assured [place] Incompetent to provide express and informed consent to voluntary admission, and this is incompetent to provide express and informed consent to treatment. The person must be transferred to involuntary status and a petition for a guardian advocate filed with the Circuit Court. [] Refusing to provide express and informed consent to voluntary admission but is competent to provide express and informed consent for treatment. The person must be discharged or transferred to involuntary status. Form shall be completed within 24 hours of a person's arrival at the receiving facility and filed in the clinical record of each person: 1. Admitted on a voluntary basis 2. Permitted to provide express and informed consent to his/her own treatment 3. Allowed to transfer from involuntary to voluntary status 4. Prior to permitting a person to consent to his or her own treatment after having been previously found incompetent to consent to treatment. History of Present Illness Capacity: Has Capacity HPI Patient is a 67-year-old white male visiting down here from [place] with his family. He lives in [place] in the winter and of funds medical does calmer. It appears his daughter found him obtunded on the lawn of their home. 11 level of old Ativan. Patient was brought to the emergency department discovered he had a left lower lobe pneumonia and a urinary tract was admitted to the medicine service 04/09/17 2 04/12/17 visit [id number]. At that time was seen by Dr. Colbert who felt he needed further assessment. Patient medically cleared yesterday and admitted to the psychiatric unit. At the present time patient sitting quietly in his room nurse Adenike present throughout session is alert oriented calm quite pleasant. Stating is from [place], but a home down here as he retired, as of very close family with his and 4 adult children and grandchildren that he sees regularly. He denies suicidality homicidality voices or visions. Acknowledges being on Lexapro for some mild depression treated by his PCP. He denies any alcohol or drug use related to this. He does have issues with COPD and recent UTI that appears to resolving also. At the present time patient does not meet Grubbs criteria will lift Grubbs act allow patient to be discharged to himself we will refill his medical medications per the med reconciliation. The follow through with his primary care physician in [place] or locally if he remains [place] Review of Systems Constitutional: DENIES: Diaphoretic episodes, Fatigue, Fever, Weight gain, Weight loss, Chills, Dizziness, Change in appetite, Night Sweats Endocrine: DENIES: Heat/cold intolerance, Polydipsia, Polyuria, Polyphagia Eyes: DENIES: Blurred vision, Diplopia, Eye inflammation, Eye pain, Vision loss , Photosensitivity, Double Vision Ears, nose, mouth, throat: DENIES: Tinnitus, Hearing loss, Vertigo, Nasal discharge, Oral lesions, Throat pain, Hoarseness, Ear Pain, Running Nose, Epistaxis, Sinus Pain, Toothache, Odynophagia Respiratory: DENIES: Apneas, Cough, Snoring, Wheezing, Hemoptysis, Sputum production, Shortness of breath Cardiovascular: DENIES: Chest pain, Palpitations, Syncope, Dyspnea on Exertion , PND, Lower Extremity Edema, Orthopnea, Claudication Gastrointestinal: DENIES: Abdominal pain, Black stools, Bloody stools, Constipation, Diarrhea, Nausea, Vomiting, Difficulty Swallowing, Anorexia Genitourinary: DENIES: Sexual dysfunction, Urinary frequency, Urinary incontinence, Urgency, Hematuria, Dysuria, Nocturia, Penile Discharge, Testicular Pain, Testicular Swelling Musculoskeletal: DENIES: Joint pain, Muscle aches, Stiffness, Joint Swelling, Back pain, Neck pain Integumentary: DENIES: Abnormal pigmentation, Nail changes, Pruritus, Rash Hematologic/lymphatic: DENIES: Bruising, Lymphadenopathy Immunologic/allergic: DENIES: Eczema, Urticaria Neurologic: DENIES: Abnormal gait, Headache, Localized weakness, Paresthesias, Seizures, Speech Problems, Tremor, Poor Balance Psychiatric: DENIES: Anxiety, Confusion, Mood changes, Depression, Hallucinations, Agitation, Suicidal Ideation, Homicidal Ideation, Delusions Past Psych History Psychological trauma history Patient denies Violence risk - others (6 mos) Low Violence risk - self (6 mos) Low Substance Abuse History Drugs/Alcohol past 12 months Denies Past Family Social History Coded Allergies: No Known Allergies (Unverified , 04/09/17) Past Medical History History COPD left lower lobe pneumonia UTI Active Scripts Levofloxacin (Levaquin)750 Mg [id number] Mg PO DAILY #4 MG Prov:Rohan Contreras MD 04/12/17 Reported Medications Magnesium Oxide-Cholecalciferol (Magnesium & Vitamin D)500-3,000 Mg-Unit Cap 04/09/17 Lorazepam 1 Mg Tab1 Mg PO HS PRN (ANXIETY AND/OR INSOMNIA) Ref 0 04/09/17 Indomethacin 50 Mg Cap50 Mg PO TID Ref 0 Take with food, milk, or antacids to decrease stomach adverse effects. 04/09/17 Rosuvastatin 20 Mg Tab20 Mg PO DAILY #30 TAB Ref 0 04/09/17 Escitalopram 20 Mg Tab20 Mg PO DAILY #30 TAB Ref 0 04/09/17 Guaifenesin-Codeine Liq (Cheratussin AC Liq)100-10 Mg/5 Ml Syrp5 Ml PO Q4H PRN ( COUGH AND COLD SYMPTOMS) Ref 0 Do not exceed 6 doses/24 hrs. 04/09/17 Budesonide-Formoterol Inh (Symbicort Inh)160-4.5 Mcg/Act Aero2 Puff INH Q12HR # 1 INHALER Ref 0 04/09/17 Albuterol 8.5 GM Inh (Proair Hfa 8.5 GM Inh)90 Mcg/Act Aer1-2 Puff INH Q6H PRN ( SHORTNESS OF BREATH) #1 INHALER Ref 0 108 mcg/actuation 04/09/17 Tiotropium Inh (Spiriva Handihaler)18 Mcg Cap18 Mcg INH DAILY #30 CAP Ref 0 1 capsule = 18 mcg 04/09/17 Current Medications Medications (Trade) Dose Ordered Sig/Henrietta Route Start Time Stop Time Status Last Admin (Atarax) 50 mg Q6H PRN PO 04/12/17 15:45 (Benadryl) 50 mg HS PRN PO 04/12/17 15:45 (Benadryl Inj) 50 mg HS PRN IM 04/12/17 15:45 (Tylenol) 650 mg Q4H PRN PO 04/12/17 15:45 (Milk Of Magnesia Liq) 30 ml DAILY PRN PO 04/12/17 15:45 (Mag-Al Plus Susp Liq) 30 ml Q6H PRN PO 04/12/17 15:45 (Levaquin) 750 mg DAILY PO 04/13/17 09:00 04/16/17 09:01 04/13/17 09:18 (Ventolin Hfa Inh) 1 puff Q6H PRN INH 04/12/17 19:30 (Symbicort 160-4.5 Inh) 2 puff Q12H INH 04/12/17 21:00 04/13/17 09:00 (Lexapro) 20 mg DAILY PO 04/13/17 09:00 04/13/17 09:18 (Indocin) 50 mg TID PO 04/12/17 20:00 04/13/17 09:19 (Ativan) 1 mg HS PRN PO 04/12/17 19:30 (Lipitor) 40 mg DAILY PO 04/13/17 09:00 04/13/17 09:18 (Spiriva Inh) 18 mcg DAILY INH 04/13/17 09:00 04/13/17 09:00 (Symbicort 160-4.5 Inh) 2 puff Q12HR INH 04/13/17 21:00 UNV Non-Formulary Medication 20 mg DAILY PO 04/14/17 09:00 UNV Family History Patient denies mental illness and family Social History Patient lives of a number of years has good which ship with his children and grandchildren Patient's Strengths (min. 2) Patient verbal cooperative it waxes health care Physical Exam Please see physical exam medical service with visit [id number] that reviewed and agreed with Vital Signs Vital Signs Date Time Temp Pulse Resp B/P Pulse Ox O2 Delivery O2 Flow Rate FiO2 04/13/17 09:52 94 04/13/17 05:33 97.4 71 19 140/65 04/12/17 20:34 21 Mental Status Examination Alert oriented heavyset white male appears stated age he is calm cooperative with us with good eye contact reactive with occasional small smile Appearance Clean neatly Speech: Unremarkable Orientation: x3 Memory: Unremarkable Thought Process: Logical, Organized Thought Content: Unremarkable Language Fair Fund of Knowledge Good Hallucination Type: None Attention and Concentration: Good Suicidal Ideation: No Previous Suicide Attempts: Yes Homicidal Ideation: No Previous Homicide Attempts: No Insight: Fair Judgment: WNL Affect: Other (good range and intensity) Mood: Euthymic Motor Activity: Normal gait Assessment & Plan Problem List: (1) Acute adjustment disorder with depressed mood ICD Code: F43.21 (2) UTI (urinary tract infection) ICD Code: N39.0 (3) Community acquired bacterial pneumonia ICD Code: J15.9 Assessment & Plan Estimated LOS: days patient does not meet Grubbs criteria will lift Grubbs act patient to be discharged to his family with no Rx by me may continue his schedule medications per prior medical at bedtime. Follow-up PCP Discharge Planning See above Request HC Surrog/Guard Advoc?: No Juan Bingham MD Apr 13, 2017 11:57
--- NOTE | 2017-04-13 12:02 | PD.CONS ---
[facility]iatry Reason for Consult Medical management Primary Care Physician Ti Cabral MD Diagnoses: History of Present Illness 67-year-old male was recently admitted to medical wu secondary to encephalopathy, CO2 narcosis and treated for community acquired pneumonia as well as UTI was discharged on a daycare of inpatient psychiatry in stable condition. While in the medical wu psychiatry was consulted secondary to acute mood disorder. Patient was seen today and denies any chest pain or shortness of breath. He is currently on his total 7 day course of by mouth Levaquin for UTI and pneumonia. Review of Systems Except as stated in HPI: all other systems reviewed are Neg Past Family Social History Allergies: Coded Allergies: No Known Allergies (Unverified , 04/09/17) Past Medical History afib- states not on blood thinners obesity copd on home oxygen not sure of sleep apnea bph Past Surgical History appendectomy Family History Noncontributory Social History used to smoke, quit now denies ETOH abuse or drug abuse Physical Exam Vital Signs Vital Signs Date Time Temp Pulse Resp B/P Pulse Ox O2 Delivery O2 Flow Rate FiO2 04/13/17 09:52 94 04/13/17 05:33 97.4 71 19 140/65 93 04/12/17 20:34 94 21 04/12/17 15:36 97.6 87 18 158/74 94 Physical Exam GENERAL: This is a well-nourished, well-developed patient, in no apparent distress. SKIN: No rashes, ecchymoses or lesions. Cool and dry. HEAD: Atraumatic. Normocephalic. No temporal or scalp tenderness. EYES: Pupils equal round and reactive. Extraocular motions intact. No scleral icterus. No injection or drainage. ENT: Nose without bleeding, purulent drainage or septal hematoma. Throat without erythema, tonsillar hypertrophy or exudate. Uvula midline. Airway patent. NECK: Trachea midline. No JVD or lymphadenopathy. Supple, nontender, no meningeal signs. CARDIOVASCULAR: Regular rate and rhythm without murmurs, gallops, or rubs. RESPIRATORY: Clear to auscultation. Breath sounds equal bilaterally. No wheezes , rales, or rhonchi. GASTROINTESTINAL: Abdomen soft, non-tender, nondistended. No hepato-splenomegaly , or palpable masses. No guarding. MUSCULOSKELETAL: Extremities without clubbing, cyanosis, or edema. No joint tenderness, effusion, or edema noted. No calf tenderness. Negative Homans sign bilaterally. NEUROLOGICAL: Awake and alert. Cranial nerves II through XII intact. Motor and sensory grossly within normal limits. Five out of 5 muscle strength in all muscle groups. Normal speech. Assessment and Plan Problem List: (1) Acute adjustment disorder with depressed mood ICD Code: F43.21 Status: Acute (2) Community acquired bacterial pneumonia ICD Code: J15.9 Status: Acute (3) UTI (urinary tract infection) ICD Code: N39.0 Status: Acute Assessment and Plan 67-year-old man with Acute adjustment disorder with depressed mood Management per psychiatry Anxiety/depression Continue Lexapro Community-acquired pneumonia Patient currently on by mouth Levaquin to complete a total of 7 day course UTI -Continue with Levaquin DVT prophylaxis Encourage ambulation Patient is medically stable, therefore [facility] will sign off. Reconsult when necessary Code Status Full code Discussed Condition With Patient Rohan Contreras MD Apr 13, 2017 12:02
[2017-04-13] MEDS ORDERED: LEVA750T9 PO (12:08)
[2017-04-13] MEDS ORDERED: ESCI20TA PO (12:08)
[2017-04-13] MEDS ORDERED: ATOR40TA16 PO (12:08)
[2017-04-13] MEDS ORDERED: Rosuvastatin PO (12:08)
[2017-04-13] MEDS ORDERED: INDO50CA PO (12:08)
[2017-04-13] MEDS ORDERED: SPIRCAP INH (12:08)
[2017-04-13] MEDS ORDERED: SYMB160A INH ×2 (12:08)
--- NOTE | 2017-04-13 12:18 | HHI.DS ---
Psychiatry Discharge Summary Inpatient Psychiatric care?: Yes Advance Directive: No Reason Not Provided: DECLINED Mental Health AdvanceDirective: No Health Care Proxy: No Admission Admission Date Apr 12, 2017 at 15:14 Admission Diagnosis: (1) Urinary tract infection ICD Code: N39.0 (2) Pneumonia ICD Code: J18.9 (3) Toxic encephalopathy ICD Code: G92 (4) Acute adjustment disorder with depressed mood ICD Code: F43.21 Brief History Patient is a 67-year-old white male visiting down here from [place] with his family. He lives in [place] in the winter and of funds medical does calmer. It appears his daughter found him obtunded on the lawn of their home. 11 level of old Ativan. Patient was brought to the emergency department discovered he had a left lower lobe pneumonia and a urinary tract was admitted to the medicine service 04/09/17 2 04/12/17 visit [id number]. At that time was seen by Dr. Colbert who felt he needed further assessment. Patient medically cleared yesterday and admitted to the psychiatric unit. At the present time patient sitting quietly in his room nurse Adenike present throughout session is alert oriented calm quite pleasant. Stating is from [place], but a home down here as he retired, as of very close family with his and 4 adult children and grandchildren that he sees regularly. He denies suicidality homicidality voices or visions. Acknowledges being on Lexapro for some mild depression treated by his PCP. He denies any alcohol or drug use related to this. He does have issues with COPD and recent UTI that appears to resolving also. At the present time patient does not meet Grubbs criteria will lift Romie act allow patient to be discharged to himself we will refill his medical medications per the med reconciliation. The follow through with his primary care physician in [place] or locally if he remains [place] Tobacco Use In Past 30 Days: No Tobacco Past 30 Days Alcohol Use: Monthly or Less Hospital Course please see note dictated under brief history. Patient does not meet Grubbs criteria I'll lift Romie act patient to be discharged to himself to follow-up with his primary care physician Rx 1 month will be given Results Blood Pressure 140 / 65 Vital Signs Date Time Temp Pulse Resp B/P Pulse Ox O2 Delivery O2 Flow Rate FiO2 04/13/17 09:52 94 04/13/17 05:33 97.4 71 19 140/65 04/12/17 20:34 21 Please see lab results under visit [id number] Summary of Procedures None done Pending results at discharge: No Medications # of Antipsychotic meds at D/C: 0 Approp Antipsych med options 1 - Minimum of three failed multiple trials of monotherapy. 2 - Documented plan to taper to monotherapy due to previous use of multiple meds OR cross-taper in progress at D/C. 3 - Documentation of augmentation of Clozapine. 4 - Justification other than those listed in allowable values 1-3, document here : Discharge Discharge Date: Apr 13, 2017 Discharge Diagnosis: (1) Pneumonia Diagnosis: Secondary ICD Code: J18.9 (2) Urinary tract infection Diagnosis: Secondary ICD Code: N39.0 (3) Toxic encephalopathy Diagnosis: Secondary ICD Code: G92 (4) Acute adjustment disorder with depressed mood Diagnosis: Principal ICD Code: F43.21 Mental Status Exam at Disch Alert oriented heavyset white male sitting calmly in his room with staff as mentioned above he has normal active, his mood is euthymic good range intensity of his affect. Speech rate and rhythm within normal limits though no formal thought disorders. No auditory or visual hallucinations. No delusions. Insight and judgment is fair. Cognition grossly intact Pt Condition on Discharge: Stable Discharge Disposition: Discharge Home Discharge Instructions Diet Instructions: As Tolerated, No Restrictions Activities you can perform: Regular-No Restrictions Scheduled Appointment: None Discharge Time > 30 minutes Discharge/Advance Care Plan Health Problems: (1) Acute adjustment disorder with depressed mood (2) UTI (urinary tract infection) (3) Community acquired bacterial pneumonia Goals to promote your health * To prevent worsening of your condition and complications * To maintain your health at the optimal level Directions to meet your goals Take your medications as prescribed Follow your dietary instruction Follow activity as directed Keep your appointments as scheduled Take your immunizations and boosters as scheduled If your symptoms worsen call your PCP, if no PCP go to Urgent Care Center or Emergency Room For 27/04 questions related to your inpatient stay or results of tests pending at discharge, please contact Dr. Juan Bingham at Smoking is Dangerous to Your Health. Avoid second hand smoking Juan Bingham MD Apr 13, 2017 12:18
[2017-04-13] MEDS ORDERED: INDOMETHACIN 50 MG CAP PO SCH (13:00)
[2017-04-13] MEDS ORDERED: BUDESONIDE-FORMOTEROL 160/4.5 MCG INHALER INH SCH (21:00)
[2017-04-14] MEDS ORDERED: TIOTROPIUM BROMIDE 18 MCG INH INH SCH (09:00)
[2017-04-14] MEDS ORDERED: LEVOFLOXACIN 750 MG TAB PO SCH (09:00)
[2017-04-14] MEDS ORDERED: ATORVASTATIN 40 MG TAB PO SCH (09:00)
[2017-04-14] MEDS ORDERED: ESCITALOPRAM OXALATE 20 MG TAB PO SCH (09:00)
== END 2017-04-13 14:30 | disposition home or self-care (01) | DRG 881 ==
LOC: H260 15:14
PROVIDERS: ADMIT Psychiatry & Neurology Psychiatry; ATTEND Psychiatry & Neurology Psychiatry
DX: F43.21 Adjustment disorder with depressed mood (principal); G92 Toxic encephalopathy; J18.9 Pneumonia, unspecified organism; I48.91 Unspecified atrial fibrillation; Z99.81 Dependence on supplemental oxygen; J44.0 Chronic obstructive pulmonary disease with (acute) lower respiratory infection; Z68.42 Body mass index [BMI] 45.0-49.9, adult; N39.0 Urinary tract infection, site not specified; E66.9 Obesity, unspecified; N40.0 Benign prostatic hyperplasia without lower urinary tract symptoms; Z87.891 Personal history of nicotine dependence